=== PATIENT | male | born 1950 | race Caucasian/White ===

== ENCOUNTER 2023-02-09 09:43 | Emergency (ER) | payer MEDICARE, SELFPAY ==
[2023-02-09 09:44] VITALS: BP 127/93; PULSE 77; RESP 18; TEMP 36.4; O2SAT 98; BMI 23.3
--- NOTE | 2023-02-09 10:04 | EX.ED.DYSGE1 ---
HPI History of Present Illness Chief Complaint: Chest Pain Narrative Narrative: Patient is a very pleasant 73-year-old male who is presenting to the ER with chief complaint of midepigastric pain, bilateral hand and feet numbness and tingling, and possible medication side effect from chemotherapy. Patient is here with his . Patient started chemotherapy today. Patient is going to have 5 weeks of chemotherapy and then radiation. Patient has a history of esophageal cancer. Patient has no cardiac history. Patient's never been a smoker, no history of diabetes or cholesterol. Patient does take metoprolol for elevated heart rate. Patient does have an esophageal stent at this time. Patient did have a stress test and echocardiogram, that was over 30 years ago. Patient stated that he started chemotherapy today, after 5 to 10 minutes he started having numbness and tingling in his bilateral hands and feet, patient became flushed, sweaty, slightly lightheaded. Midepigastric pain started. Chemotherapy was stopped. Patient was sent to the ER for evaluation. Patient has no cardiac history. No recent traveling. Patient's oncologist is Dr. Muñiz. Patient was given Benadryl and oncology, that helped with his symptoms somewhat. Patient blood pressure dropped slightly, patient was sent to the ER for evaluation. Patient was waiting lengthy amount of time secondary to patient volume in the ER today. When I performed HPI and physical exam, patient was completely asymptomatic. [facility] Medical History (Updated 02/09/23 @ 13:[address] Saulo Cuellar, ) Esophageal cancer GERD (gastroesophageal reflux disease) HLD (hyperlipidemia) HTN (hypertension) Home Medications hydrocodone-acetaminophen 5-325mg 5mg-325mg 1 tab PO Q6H PRN PRN Pain 02/09/23 [History Last Taken Unknown] metoprolol succinate 25 mg tablet,extended release 24 hr 25 mg PO DAILY 02/09/23 [History Last Taken Unknown] omeprazole 40 mg capsule,delayed release 40 mg PO DAILY 02/09/23 [History Last Taken Unknown] oxycodone-acetaminophen 10 mg-325 mg tablet 1 tab PO Q6H PRN PRN Pain 02/09/23 [History Last Taken Unknown] pantoprazole 40 mg tablet,delayed release 40 mg PO DAILY 02/09/23 [History Last Taken Unknown] tamsulosin 0.4 mg capsule 0.4 mg PO DAILY 02/09/23 [History Last Taken Unknown] Allergy/AdvReac Type Severity Reaction Status Date / Time No Known Allergies Allergy Verified 02/09/23 09:43 Social History Smoking Status: Never smoker ROS ROS ED ROS Narrative REVIEW OF SYSTEMS: Unless otherwise stated in this report the patient's positive and negative responses for review of systems for constitutional, eyes, ENT, cardiovascular, respiratory, gastrointestinal, neurological, , musculoskeletal, and integument systems and related systems to the presenting problem are either stated in the history of present illness or were not pertinent or were negative for the symptoms and/or complaints related to the presenting medical problem. EXAM Physical Exam Narrative Exam Narrative: Vital signs reviewed and patient is not hypoxic. General: The patient appears well and in no apparent distress. Patient is resting comfortably on cart. Not toxic, lethargic, or listless. Skin: Warm, dry, no pallor noted. There is no rash noted. Head: Normocephalic, atraumatic Eye: Normal conjunctiva, no drainage, EOMI. PERRL. Ears, Nose, Mouth, and Throat: oral mucosa is moist. Nares patent. Mouth without vesicles. Cardiovascular: Regular Rate and Rhythm, no murmurs, gallops, or rubs no anterior, lateral, posterior chest wall pain. Respiratory: Patient is in no distress, no accessory muscle use, lungs are clear to auscultation, no wheezing, rales or rhonchi Back: non-tender, no CVA tenderness bilaterally to percussion. NO CTLS midline or paraspinal tenderness to palpation. GI: Soft, no midepigastric tenderness to palpation, no tenderness to palpation, no masses appreciated. No rebound, guarding, or rigidity noted. Musculoskeletal: The patient has full range of motion of all extremities and joints with no difficulty. Patient has no motor, no sensory deficits. Neurological: A&O x4, normal speech, no focal neurological deficits. Psychiatric: Cooperative Const Vital Signs: 02/09/23 09:44 02/09/23 09:47 02/09/23 10:09 Temperature 97.6 F L Temperature Source Oral Pulse Rate 77 Respiratory Rate 18 Respiratory Effort Normal Non-Labored Blood Pressure 127/93 H Blood Pressure Mean 104 Pulse Ox 98 Oxygen Delivery Method Room Air Room Air 02/09/23 10:43 Temperature Temperature Source Pulse Rate 50 L Respiratory Rate 18 Respiratory Effort Blood Pressure 130/67 H Blood Pressure Mean 88 Pulse Ox 97 Oxygen Delivery Method Room Air MDM MDM Lab Data Attestation: I reviewed the patient's lab results. Labs: Laboratory Results - last 24 hr 02/09/23 02/09/23 02/09/23 09:58 09:58 09:58 WBC 6.6 RBC 4.16 L Hgb 13.0 Hct 40.6 MCV 97.6 H MCH 31.3 MCHC 32.0 RDW Std Deviation 45.4 H RDW Coeff of Chuck 12.6 Plt Count 198 MPV 9.7 Immature Gran % (Auto) 0.600 Neut % (Auto) 84.4 H Lymph % (Auto) 10.0 L [place] % (Auto) 2.3 Eos % (Auto) 2.4 Baso % (Auto) 0.3 Absolute Neuts (auto) 5.6 Absolute Lymphs (auto) 0.66 L Nucleated RBC % 0 Sodium 138 Potassium 3.8 Chloride 104 Carbon Dioxide 25.0 Anion Gap 9 BUN 13 Creatinine 1.06 Estim Creat Clear Calc 65.12 Est GFR (MDRD) Af Amer 88 Est GFR (MDRD) Non-Af 73 BUN/Creatinine Ratio 12.3 Glucose 110 H Calcium 8.7 Magnesium 2.0 Total Bilirubin 0.60 AST 12 L ALT 16 Alkaline Phosphatase 105 Troponin I High Sens Cancelled 6 B-Natriuretic Peptide Total Protein 6.3 L Albumin 3.2 Globulin 3.1 Albumin/Globulin Ratio 1.0 02/09/23 09:58 WBC RBC Hgb Hct MCV MCH MCHC RDW Std Deviation RDW Coeff of Chuck Plt Count MPV Immature Gran % (Auto) Neut % (Auto) Lymph % (Auto) [place] % (Auto) Eos % (Auto) Baso % (Auto) Absolute Neuts (auto) Absolute Lymphs (auto) Nucleated RBC % Sodium Potassium Chloride Carbon Dioxide Anion Gap BUN Creatinine Estim Creat Clear Calc Est GFR (MDRD) Af Amer Est GFR (MDRD) Non-Af BUN/Creatinine Ratio Glucose Calcium Magnesium Total Bilirubin AST ALT Alkaline Phosphatase Troponin I High Sens B-Natriuretic Peptide 20.1 Total Protein Albumin Globulin Albumin/Globulin Ratio Radiography Chest X-Ray - ED: 2 View and Read by ED Physician (Chest x-ray shows no acute cardiopulmonary disease, no infiltrate, no effusion.) Diagnostic Testing: Clinical Impression(s) from Imaging Studies Chest X-Ray 02/09/23 10:22 IMPRESSION: Hyperinflated lungs. Electronically Signed: yKlie Salter MD at 10:42 EDT , EKG Initial EKG: Attestation: I personally reviewed and interpreted this EKG as follows: Comments: EKG interpretation. Normal sinus rhythm at 75 beats a minute. Artifact noted. Left axis deviation. QTc of 424. No acute STEMI. Additional Tests and Interventions Additional Tests or Interventions: Patient felt better after he was in the ER. Patient was given IV fluids. Patient's EKG, troponin, lab testing show no acute findings. Chest x-ray shows hyperinflated lungs, this was discussed at bedside. Patient never been a smoker, no history of emphysema or COPD. Patient will go across the street back to the oncology office when discharged and follow-up with oncologist to see what the next course of action is with chemotherapy. Patient that finished his chemotherapy today, and he is supposed to have another dosing of chemotherapy tomorrow. Patient and very thankful for help at bedside. If patient continues to have midepigastric pain or any chest pain, he will follow up with his PCP for outpatient cardiac testing is needed. Patient is aware if he has heavy chest pressure, shortness of breath, nausea or vomiting, or any other acute complaints return back to the ER medially. Discharge Plan Triage Chief Complaint: Chest Pain ED Provider: Saulo Cuellar Dx/Rx/DC Orders Clinical Impression: Midepigastric pain, Side effect of medication, Atypical chest pain Instructions: ED ADVERSE DRUG REACTION Allergic, ED Chest Pain, Uncertain Cause, ED Epigastric Pain Uncertain Cause, Chest Pain [facility] Prescriptions: No Action hydrocodone-acetaminophen 5-325 mg tablet 1 tab PO Q6H PRN PRN (Reason: Pain) Label Comments: TAKE ONE TABLET BY MOUTH EVERY 6 HOURS NEEDED FOR PAIN omeprazole 40 mg capsule,delayed release(DR/EC) 40 mg PO DAILY Label Comments: TAKE ONE CAPSULE BY MOUTH EVERY DAY oxycodone-acetaminophen 10-325 mg tablet 1 tab PO Q6H PRN PRN (Reason: Pain) Label Comments: TAKE 1 TABLET BY MOUTH EVERY 6 HOURS NEEDED tamsulosin 0.4 mg capsule 0.4 mg PO DAILY pantoprazole 40 mg tablet,delayed release (DR/EC) 40 mg PO DAILY Label Comments: TAKE ONE TABLET BY MOUTH BEFORE MEALS IN THE MORNING AND IN THE EVENING metoprolol succinate 25 mg tablet extended release 24 hr 25 mg PO DAILY Primary Care Provider: Jairo Minor Referrals: Patrice Langford MD [Non-Staff] - Activity Restrictions/Additional Instructions: Go to your oncology office after discharge to see what the next recommendation is for chemotherapy treatment. Difficult to state whether this was a true side effect of medication or not, follow-up with oncology for future chemotherapy regimen Disposition Disposition: Home, Self Care Discharge Date/Time: 02/09/23 13:35
--- NOTE | 2023-02-09 10:08 | EKG12_ITS ---
Test Reason : CP Blood Pressure : / mmHG Vent. Rate : 075 BPM Atrial Rate : 075 BPM P-R Int : 164 ms QRS Dur : 092 ms QT Int : 380 ms P-R-T Axes : 009 -31 020 degrees QTc Int : 424 ms Normal sinus rhythm with sinus arrhythmia Left axis deviation Abnormal ECG Confirmed by YAKELIN GA, CHAU ([id number]), editorial manager AUTUMN DOOLEY ([id number]) on 02/11/2023 2:07:49 PM Referred By: SHARI/DAVID Confirmed By:CHAU HAMLIN MD
[2023-02-09 10:21] LABS: Absolute Lymphocyte Count 0.66 X10^3/uL (0.83-4.51); Absolute Neutrophil Count 5.6 X10^3/uL (2.0-7.7); Basophil# 0.02 X10^3/uL; Basophil% 0.3 % (0-1); Eosinophil# 0.16 X10^3/uL; Eosinophils% 2.4 % (0-5); Hematocrit 40.6 % (40-54); Lymphocyte # 0.66 X10^3/ul (0.83-4.51); Mean Corpuscular Hgb 31.3 pg (27.0-32.0); Mean Corpuscular Volume 97.6 fL (80-94); Mean Platelet Vol. 9.7 fl (6.2-12.0); Monocyte# 0.15 X10^3/uL; Monocyte% 2.3 % (0-10); NRBC Flagged by Analyzer 0 % (0-5); Neutrophil # 5.56 X10^3/uL (2.7-7.7); Neutrophil % 84.4 % (47-70); Platelet Count 198 K/mm3 (150-450); RBC Distribution Width CV 12.6 % (11.6-14.6); RBC Distribution Width SD 45.4 fl (35.1-43.9); Red Blood Count 4.16 M/mm3 (4.6-6.2); White Blood Count 6.6 K/mm3 (4.4-11.0)
--- NOTE | 2023-02-09 10:22 | RAD_ITS ---
INDICATION: chest pain EXAMINATION/TECHNIQUE: X-RAY - XR Chest 2 Views COMPARISON: FINDINGS: LINES/DEVICES: None. LUNGS: The lungs are hyperinflated. No consolidation, edema or effusion. No pneumothorax. MEDIASTINUM AND CARDIOVASCULAR STRUCTURES: Cardiac silhouette not enlarged. Central airways and mediastinal contour are unremarkable. There is a stent within the distal esophagus and gastroesophageal junction. BONES AND SOFT TISSUES: There are postsurgical changes of the right humerus. RAD/Chest PA and Lateral IMPRESSION: Hyperinflated lungs. Electronically Signed: Kylie Salter MD at 10:42 EDT ,
[2023-02-09 10:40] LABS: BNP,B-Type NATRIURETIC PEPTIDE 20.1 pg/mL (0-100)
[2023-02-09 10:43] VITALS: BP 130/67; PULSE 50; RESP 18; O2SAT 97
[2023-02-09 10:43] LABS: Troponin-I HS (w/2H Reflex) 6 pg/mL (3.0-78.0)
[2023-02-09 10:47] LABS: AST(SGOT) 12 U/L (15-37); Alanine Aminotransfer ALT/SGPT 16 U/L (16-61); Albumin, Serum 3.2 g/dL (3.2-5.0); Alkaline Phosphatase 105 U/L (45-117); Anion Gap 9 (5-15); BUN 13 mg/dL (7-18); BUN/Creat Ratio 12.3 RATIO (10-20); Calcium,Total 8.7 mg/dL (8.5-10.1); Chloride 104 mmol/L (98-107); Creatinine, Serum 1.06 mg/dL (0.70-1.30); EST Glomerular Filtration Rate 73 mL/min (>60); Est Glom Filt Rate - Afr Amer 88 mL/min (>60); Estimated Creatinine Clearance 65.12 ml/min; Globulin 3.1 g/dL (2.2-4.2); Glucose 110 mg/dL (74-106); Potassium 3.8 mmol/L (3.5-5.1); Protein, Total 6.3 g/dL (6.4-8.2); Sodium Level 138 mmol/L (136-145)
[2023-02-09] MEDS: Ondansetron 4 MG/2 ML Vial IV (10:50)
[2023-02-09] MEDS: Aspirin 81 MG TAB.CHEW 324 MG PO (10:50)
[2023-02-09] MEDS: 0.9% Normal Saline 1,000 ML 999 ML IV (10:50)
[2023-02-09 12:18] LABS: Reflex Troponin-HS? (from REC) Y
[2023-02-09 13:00] VITALS: BP 118/78; PULSE 61; RESP 16; O2SAT 98
== END 2023-02-09 13:35 | disposition home or self-care (01) ==
PROVIDERS: Emergency Provider Emergency Medicine; PCP Family Medicine; Visit Provider Emergency Medicine
DX: R10.13 Epigastric pain (principal); E78.5 Hyperlipidemia, unspecified; R07.89 Other chest pain; I10 Essential (primary) hypertension; Z85.01 Personal history of malignant neoplasm of esophagus; Z79.899 Other long term (current) drug therapy; R20.0 Anesthesia of skin; R20.2 Paresthesia of skin; T50.995A Adverse effect of other drugs, medicaments and biological substances, initial encounter
CPT/HCPCS: 71046; 80053; 83735; 83880; 84484; 85025; 93005; 96361; 96374; 99285; J7030; J2405

== ENCOUNTER → 2023-10-13 | Outpatient (CLI) | payer MEDICARE, SELFPAY ==
--- NOTE | 2023-10-13 09:25 | CT_ITS ---
STUDY: CT ABDOMEN AND PELVIS WITHOUT CONTRAST REASON FOR EXAM: Male, 73 years old. BENIGN PROSTATIC HYPERPLASIA, recurrent cystitis, UTI RADIATION DOSAGE (If Supplied By Facility): CTDIvol = ( 6.60 ) mGy, DLP = ( 331.66 ) mGycm TECHNIQUE: Transaxial images were obtained from the dome of the diaphragm to the symphysis pubis without oral contrast, and without intravenous contrast. Sagittal and coronal images were reconstructed. Individualized dose optimization techniques were used for this CT. COMPARISON: None. FINDINGS: Minimal linear scarring at the right lung base with mild pleural thickening. The visualized portions of the heart are within normal limits. Multiple calcified hepatic granulomas. Tiny gallstone in the neck of the gallbladder. There are multiple benign calcified granulomata of the spleen. Normal pancreas. Normal bilateral adrenal glands. 2.8 mm nonobstructive calculus in the posterior mid pole calyx of the right kidney. Normal left kidney. There is evidence of a gastric pull through procedure. Normal small intestine. There are multiple colonic diverticula consistent with diverticulosis. The appendix is visualized and appears normal. There is scattered atherosclerotic calcification of the abdominal aorta, without a demonstrated aneurysm. Normal inferior vena cava. Normal retroperitoneum. There is diffuse irregular thickening of the wall of the urinary bladder. Prostatic enlargement. Central prostatic calcification. There is indentation of the bladder base due to the prostatic enlargement. Normal abdominal wall. Mild disc space narrowing at the L5-S1 level. CT/Abdomen/Pelvis without Cont IMPRESSION: Findings suggestive of prior gastric pull-through surgical procedure. Mild scarring at the right lung base. Multiple calcified granulomas in the liver and spleen. Tiny gallstone in neck of the gallbladder lumen. Diffuse irregular thickening of the urinary bladder wall with prostatic enlargement and indentation at the bladder base. Electronically Signed: Dru Rodríguez MD at 10:50 EST ,
== END | disposition home or self-care (01) ==
PROVIDERS: PCP Family Medicine; Referring Provider Urology; Visit Provider Urology
DX: R30.0 Dysuria (principal); N40.1 Benign prostatic hyperplasia with lower urinary tract symptoms
CPT/HCPCS: 74176; 87077; 87086; 87088; 87186

== ENCOUNTER → 2024-04-25 | Outpatient (CLI) | payer MEDICARE, SELFPAY ==
[2024-04-25 10:26] LABS: PSA,Total - Annual Screen 1.31 ng/mL (0.00-4.00)
== END | disposition home or self-care (01) ==
LOC: LAB 09:16
PROVIDERS: PCP Family Medicine; Referring Provider Nurse Practitioner; Visit Provider Nurse Practitioner
DX: Z12.5 Encounter for screening for malignant neoplasm of prostate (principal)
CPT/HCPCS: 36415; 84153; G0103